=== PATIENT | male | born 1970 | race Caucasian/White ===

== ENCOUNTER 2023-01-04 05:47 | Observation (INO) ==
--- NOTE | 2022-12-07 11:02 | PAT Medication Instructions ---
Medication Instructions Date of Service December 07, 2022 Home Medications Medication Instructions Recorded metformin 500 mg tablet,extended 500 mg PO BID #180 tabs 06/15/22 release 24 hr cyclobenzaprine 10 mg tablet 10 mg PO HS PRN muscle spasm #90 09/16/22 tabs tadalafil 20 mg tablet 20 mg PO DAILY PRN sexual activity 09/16/22 #90 tabs pregabalin 75 mg capsule 75 mg PO TID #90 caps 11/04/22 amlodipine 5 mg tablet 5 mg PO QAM #90 tabs 12/06/22 olmesartan 40 1 tab PO QAM #90 tabs 12/06/22 mg-hydrochlorothiazide 25 mg tablet metformin 500 mg tablet,extended release 24 hr 500 mg PO BID cyclobenzaprine 10 mg tablet 10 mg PO HS PRN muscle spasm tadalafil 20 mg tablet 20 mg PO DAILY PRN sexual activity pregabalin 75 mg capsule 75 mg PO TID fluoxetine 20 mg capsule 20 mg PO QAM meloxicam 7.5 mg tablet 7.5 mg PO QAM naltrexone 50 mg tablet 50 mg PO QAM ropinirole 0.25 mg tablet 0.25 mg PO QPM rosuvastatin 5 mg tablet 5 mg PO QAM spironolactone 25 mg tablet 25 mg PO QAM amlodipine 5 mg tablet 5 mg PO QAM olmesartan 40 mg-hydrochlorothiazide 25 mg tablet 1 tab PO QAM ASK your surgeon for instructions meloxicam 7.5 mg tablet 7.5 mg PO QAM STOP taking 24 hours before surgery tadalafil 20 mg tablet 20 mg PO DAILY PRN sexual activity DO NOT take the morning of surgery metformin 500 mg tablet,extended release 24 hr 500 mg PO BID spironolactone 25 mg tablet 25 mg PO QAM olmesartan 40 mg-hydrochlorothiazide 25 mg tablet 1 tab PO QAM Take morning of surgery With a small sip of water, OTHERWISE NOTHING TO EAT OR DRINK AFTER MIDNIGHT: pregabalin 75 mg capsule 75 mg PO TID fluoxetine 20 mg capsule 20 mg PO QAM naltrexone 50 mg tablet 50 mg PO QAM rosuvastatin 5 mg tablet 5 mg PO QAM amlodipine 5 mg tablet 5 mg PO QAM Take evening before surgery metformin 500 mg tablet,extended release 24 hr 500 mg PO BID cyclobenzaprine 10 mg tablet 10 mg PO HS PRN muscle spasm (if needed) pregabalin 75 mg capsule 75 mg PO TID ropinirole 0.25 mg tablet 0.25 mg PO QPM Other Notes If you have any questions please call us at [phone] or [phone] or [phone] or [phone]
--- NOTE | 2022-12-12 09:49 | Anesthesiology Consultation ---
Date of Service December 12, 2022 Assessment & Plan (1) Encounter for pre-operative examination: - check BSG am DOS. Chart Review Chart Review: Acceptable Risk for Surgery and Patient seen in Pre Admission Testing Teaching & Discussion Pre-Anesthesia Teaching/Discussion Notes: Instructed NPO after midnight before surgery, except medications with 15 cc of water. Medication instructions provided according to the PAT guidelines. History Surgery Operation Date: 01/03/23 07:15 Proposed Procedures p L4-L5 Lumbar Decompression - Ben Cuadra MD Height/Weight Height: 6 ft 1 in Weight: 137.9 kg Allergies Allergy/AdvReac Type Severity Reaction Status Date / Time lisinopril AdvReac Mild cough Verified 12/12/22 08:09 Medications Home Medications Medication Instructions Recorded Confirmed Last Taken metformin 500 mg tablet,extended 500 mg PO BID #180 tabs 06/15/22 12/05/22 Unknown release 24 hr cyclobenzaprine 10 mg tablet 10 mg PO HS PRN muscle spasm #90 09/16/22 12/05/22 Unknown tabs tadalafil 20 mg tablet 20 mg PO DAILY PRN sexual activity 09/16/22 12/05/22 Unknown #90 tabs pregabalin 75 mg capsule 75 mg PO TID #90 caps 11/04/22 12/05/22 Unknown fluoxetine 20 mg capsule 20 mg PO QAM 12/05/22 12/05/22 Unknown meloxicam 7.5 mg tablet 7.5 mg PO QAM 12/05/22 12/05/22 Unknown ropinirole 0.25 mg tablet 0.25 mg PO QPM 12/05/22 12/05/22 Unknown rosuvastatin 5 mg tablet 5 mg PO QAM 12/05/22 12/05/22 Unknown spironolactone 25 mg tablet 25 mg PO QAM 12/05/22 12/05/22 Unknown amlodipine 5 mg tablet 5 mg PO QAM #90 tabs 12/06/22 Unknown olmesartan 40 1 tab PO QAM #90 tabs 12/06/22 Unknown mg-hydrochlorothiazide 25 mg tablet naltrexone 50 mg tablet 50 mg PO QAM #90 tabs 12/08/22 Unknown Past Medical History Medical History Depression Dyslipidemia GERD (gastroesophageal reflux disease) rare, stable per pt History of varicocele REPAIRED >20 YRS AGO HTN (hypertension) controlled, stable per pt Lumbar pain with radiation down both legs Lumbosacral facet joint syndrome Obstructive sleep apnea --NO DEVICE; USES WEDGE PILLOW Prediabetes on metformin Restless legs Severe obesity (BMI >= 40) Urinary urgency r/t back Patient denies h/o stroke, seizures, heart attack, heart failure, blood clots/DVTs or blood transfusions. Exercise / Class Metabolic Activity II 4-5 Yardwork/Stairs/Walk up hill (denies chest discomfort or shortness of breath with 1 FOS) Past Family History Family History Uncle Colorectal cancer Father Hypertension Grandfather (Paternal) Hypertension Denies family history of Ovarian cancer Prostate cancer Myocardial infarction Breast cancer Past Surgical History Surgical History H/O inguinal hernia repair H/O vasectomy History of colonoscopy Past Anesthesia History No Hx of Anesthesia Complications and No Family Hx of Anesthesia Complications History of PONV No Hx of PONV and No Hx of Motion Sickness Social History Smoking Status: Never smoker Do You Dip or Chew Tobacco: No Hx Alcohol Use: Yes alcohol intake frequency: holidays/special occasions only Hx Substance Use: No substance use type: does not use Review of Systems Patient denies chest pain, shortness of breath, dyspnea on exertion, fever, chills, cough, wheezing, or palpitations. Physical Exam Vital Signs Vitals BP 117/83 P 78 TEMP 98.3 SP02 95% on RA RESP 17 Physical Patient resting comfortably in chair in no acute distress, alert and oriented, responding appropriately throughout visit Full cervical extension range of motion without pain TMD < 3 finger breadths Mallampati Score 3 Dentition: several crowns, denies chipped or loose teeth implants or bridges Lungs: normal respiratory effort. Good air movement, clear throughout to auscultation, no adventitious breath sounds Cardiac: regular rate and rhythm, no murmurs noted Carotid arteries: negative bruit bilat Lab Results Anesthesia Preop Results Results Anesthesia Widget: WBC 6.73 K/ul (4.8-10.8) 12/12/22 Hgb 14.9 g/dl (14.0-18.0) 12/12/22 Hct 41.1 % (42.0-52.0) L 12/12/22 Plt 237 K/uL (130-400) 12/12/22 Na 138 mmol/L (136-145) 12/12/22 K 4.0 mmol/L (3.5-5.1) 12/12/22 Cl 103 mmol/L (98-107) 12/12/22 CO2 28 mmol/L (21-32) 12/12/22 BUN 15 mg/dl (6-23) 12/12/22 Creat 1.03 mg/dl (0.6-1.4) 12/12/22 Glucose Level 125 mg/dl (70-99(Fasting)) H 12/12/22 HA1c 6.3 % (4.5-5.6) H 12/12/22 Blood Type A Negative 12/12/22 Antibody Screen NEGATIVE 12/12/22 Testing Electrocardiogram Date: 12/12/22 NSR, rate 75 bpm Stress Test Date: 06/28/21 Negative stress echo and EKG for ischemia at MPHR 88% METS 9.2 EF 60-65% No regional wall motion abnormalities Mild cLVH No significant valvular abnormalities Other Testing Head CT 01/17/22 No acute intracranial abnormality.
[2023-01-04] MEDS ORDERED: LR 15ML/HR IV SCH (06:00)
[2023-01-04] MEDS ORDERED: LR 60ML/HR IV SCH (06:00)
[2023-01-04] MEDS ORDERED: DexMEDEtomidine HCL IV 100 MCG/ML VIAL IV ONE (06:40)
[2023-01-04] MEDS ORDERED: REMIFENTANIL HCL 1 MG VIAL IV ONE ×2 (06:40→06:41)
[2023-01-04] MEDS ORDERED: MIDAZOLAM HCL 1 MG/ML 2ML VIAL ONE (07:00)
[2023-01-04] MEDS ORDERED: fentaNYL citrate PF 100 MCG/2 ML VIAL ONE ×2 (07:01→08:13)
--- NOTE | 2023-01-04 07:02 | History & Physical Bridge Note ---
Date of Service January 04, 2023 History & Physical Bridge Note I have examined the patient, reviewed the History & Physical and in the interval since the performance of the History & Physical I have noted the following changes of clinical significance: no changes noted
[2023-01-04] MEDS ORDERED: LABETALOL HCL IV 5 MG/ML 20ML IV PRN (07:09)
[2023-01-04] MEDS ORDERED: ONDANSETRON INJ 2 MG/ML 2 ML VIAL IV PRN ×2 (07:09→09:58)
[2023-01-04] MEDS ORDERED: HYDROmorphone INJ 1 MG/ML SYRINGE IV PRN (07:09)
[2023-01-04] MEDS ORDERED: PROMETHAZINE HCL 12.5 MG in SODIUM CHLORIDE 0.9% 50 ML IV PRN ×2 (07:09→09:58)
[2023-01-04] MEDS ORDERED: FLUMAZENIL 0.1 MG/1 ML 10 ML VIAL IV PRN (07:09)
[2023-01-04] MEDS ORDERED: NALOXONE HCL 0.4 MG/1 ML VIAL/CARP IV PRN ×2 (07:09→09:58)
[2023-01-04] MEDS ORDERED: ATROPINE SULFATE 0.1 MG/ML 10ML SYR IV PRN (07:09)
[2023-01-04] MEDS ORDERED: ePHEDrine sulfate 50 MG/ML AMP IV PRN (07:09)
[2023-01-04] MEDS ORDERED: LIDOCAINE 2% 2 ML VIAL/AMP(20MG/ML) INFIL ONE (07:12)
[2023-01-04] MEDS ORDERED: ROCURONIUM BROMIDE 10 MG/ML 5 ML VIAL IV ONE ×2 (07:12→08:09)
[2023-01-04] MEDS ORDERED: ONDANSETRON INJ 2 MG/ML 2 ML VIAL ONE (07:12)
[2023-01-04] MEDS ORDERED: DEXAMETHASONE SOD INJ 4 MG/ML VIAL ONE (07:12)
[2023-01-04] MEDS ORDERED: PROPOFOL IV EMULSION 10 MG/ML 20 ML VIAL IV ONE ×2 (07:12→08:57)
[2023-01-04] MEDS ORDERED: BUPIVACAINE/EPINEPHRINE 0.5% MPF 1:200,000 30 ML VIAL ONE (07:14)
[2023-01-04] MEDS ORDERED: VANCOMYCIN HCL 1000MG/20ML VIAL ONE (07:14)
[2023-01-04] MEDS ORDERED: GLYCOPYRROLATE 0.2 MG/ML VIAL ONE (07:50)
[2023-01-04] MEDS ORDERED: diphenhydrAMINE 50 MG/ML VIAL ONE (07:50)
[2023-01-04] MEDS ORDERED: PHENYLEPHRINE HCL 10 MG/ML VIAL ONE (08:57)
[2023-01-04] MEDS ORDERED: SUGAMMADEX SODIUM 200 MG/2 ML VIAL IV ONE (09:32)
--- NOTE | 2023-01-04 09:54 | Post Operative Brief Note ---
PG Immediate Post Op with CF Date of Surgery January 04, 2023 Pre & Post Diagnosis Operation Date: 01/04/23 07:15 Pre-Op Diagnosis: Lumbar Back Pain with radiculopathy affecting lower extremities Lumbar Stenosis with Neurogenic Claudication, Degenerative Spondylolithesis, Post-Op Diagnosis: Lumbar Back Pain with radiculopathy affecting lower extremities Lumbar Stenosis with Neurogenic Claudication, Degenerative Spondylolithesis, I identified the patient and participated in the time-out.: Yes Procedure Operation Date: 01/04/23 07:15 Actual Procedures p L4-L5 Lumbar Decompression(Not Applicable) - Ben Cuadra MD Surgeon Ben Cuadra MD Wound Care Technician Tigist bolivar Estimated Blood Loss 50 Findings Consistent with Post-Op Diagnosis Specimens Specimen Description: No specimen per surgeon Drains Jones Catheter (jones inserted prior to beginning of procedure by Maddison Salmeron one attempt no difficulties.)
[2023-01-04] MEDS ORDERED: oxyCODONE/ACETAMINOPHEN 5mg/325mg TAB PO PRN (09:58)
[2023-01-04] MEDS ORDERED: METOCLOPRAMIDE HCL INJ 5 MG/ML 2 ML VIAL IV PRN (09:58)
[2023-01-04] MEDS ORDERED: bisacodyL 10 MG SUPP PR PRN (09:58)
[2023-01-04] MEDS ORDERED: ACETAMINOPHEN 1,000 MG/100 ML VIAL IV PRN (09:58)
[2023-01-04] MEDS ORDERED: ALUMINUM/MAGNESIUM SUSP 30 ML UDC PO PRN (09:58)
[2023-01-04] MEDS ORDERED: LORazepam 0.5 MG TAB PO PRN (09:58)
[2023-01-04] MEDS ORDERED: hydrOXYzine HCl 25 MG TAB PO PRN (09:58)
[2023-01-04] MEDS ORDERED: SOD PHOSPHATE/SOD BIPHOSPHATE ENEMA 132 ML BTL PR PRN (09:58)
[2023-01-04] MEDS ORDERED: MAGNESIUM HYDROXIDE SUSP 30 ML UDC PO PRN (09:58)
[2023-01-04] MEDS ORDERED: HYDROmorphone INJ 0.5 MG/0.5 ML SYR IV PRN (09:58)
[2023-01-04] MEDS ORDERED: DO NOT ADMINISTER FLU VACCINE PRN (09:58)
[2023-01-04] MEDS ORDERED: FAMOTIDINE 20 MG TAB PO PRN (09:58)
[2023-01-04] MEDS ORDERED: DO NOT ADMINISTER PNEUMOCOCCAL VACCINE PRN (09:58)
[2023-01-04] MEDS ORDERED: ONDANSETRON 4 MG OD TAB PO PRN (09:58)
[2023-01-04] MEDS ORDERED: LORazepam 2 MG/1 ML VIAL IV PRN (09:58)
[2023-01-04] MEDS ORDERED: diphenhydrAMINE Capsule 25 MG CAP PO PRN (09:58)
[2023-01-04] MEDS ORDERED: ACETAMINOPHEN 500 MG TAB PO PRN (09:58)
[2023-01-04] MEDS: fentaNYL citrate PF 100 MCG/2 ML VIAL IV PRN ×4 (10:13→10:30)
--- NOTE | 2023-01-04 10:27 | Fluoroscopy Report ---
FL lumbar spine 2-3V CLINICAL HISTORY: L4-L5 LUMBAR DECOMPRESSION COMPARISON STUDY: None. FLUOROSCOPY TIME: 23 seconds. FLUOROSCOPY IMAGES: 1 Ka,r: 20.2 mGy FINDINGS: There are surgical instruments posterior to the L4 and L5 vertebral bodies. IMPRESSION: Fluoroscopic assistance for L4-5 decompression. ACT 112: Negative or not required by law. Electronically signed by: Ge Bender M.D. 01/04/2023 10:26 AM
--- NOTE | 2023-01-04 10:41 | Anesthesiology Progress Note ---
Date of Service January 04, 2023 Anesthesia Post Procedure Vital Signs Vital Signs: Temp Pulse Resp BP Pulse Ox O2 Del Method O2 Flow Rate 01/04/23 09:59 36.0 C L 96 H 18 154/96 H 99 Oxymask 5 01/04/23 06:18 36.7 C 81 20 151/109 H 96 Room Air Pain Intensity Lower Back: Pain Intensity: 6 Transfer of Care Handoff Completed per policy Notes Mental Status: alert / awake / arousable Patient Amnestic to Procedure: Yes Nausea / Vomiting: adequately controlled Pain: adequately controlled Airway Patency, RR, SpO2: stable & adequate BP & HR: stable & adequate Hydration State: stable & adequate Anesthetic Complications: no major complications apparent
[2023-01-04] MEDS ORDERED: CYCLOBENZAPRINE HCL 10 MG TAB PO PRN (11:17)
[2023-01-04] MEDS: LACTATED RINGER'S 1,000 ML IV SCH (13:04)
[2023-01-04] MEDS: KETOROLAC 30 MG/ML VIAL IV SCH ×2 (13:05→17:59)
[2023-01-04] MEDS: PREGABALIN 75 MG CAP PO SCH ×2 (13:47→20:19)
[2023-01-04] MEDS ORDERED: LORazepam 0.5 MG in SYRINGE 0.25 ML IV PRN (14:19)
[2023-01-04] MEDS: ceFAZolin 1000MG 1,000 MG/7.5 ML SYR IV SCH (16:20)
[2023-01-04] MEDS: metFORMIN HCL ER 500 MG TABCR PO SCH (16:20)
[2023-01-04] MEDS ORDERED: DOCUSATE SODIUM/SENNA 50/8.6MG TAB PO SCH (21:00)
[2023-01-04] MEDS ORDERED: rOPINIRole HCL 0.25 MG TABLET PO SCH (21:00)
[2023-01-05] MEDS: ceFAZolin 1000MG 1,000 MG/7.5 ML SYR IV SCH (00:42)
[2023-01-05] MEDS: KETOROLAC 30 MG/ML VIAL IV SCH ×2 (00:43→04:46)
[2023-01-05] MEDS: LACTATED RINGER'S 1,000 ML IV SCH (05:00)
[2023-01-05] MEDS ORDERED: POLYETHYLENE (MIRALAX) 17 GM PACK PO SCH (06:00)
[2023-01-05] MEDS: metFORMIN HCL ER 500 MG TABCR PO SCH (07:43)
--- NOTE | 2023-01-05 07:58 | Orthopedic Progress Note ---
Date of Service January 05, 2023 Subjective . Patient notes that he has some incisional pain, but overall he is now able to stand up without his feet going numb, is pleased with his postoperative presentation of symptoms. Motor intact in lower extremities. Impression/plan: Patient doing well status post decompression at L4-5 postop day 1, ready for discharge later today once clears physical therapy. Review of Systems All systems reviewed & are unremarkable except as noted in HPI & below. Physical Exam . Results & Data Results & Data Laboratory Results . Diagnostic Findings . PG Care Time/CCT Total # of Minutes Spent Total Time Spent with Patient: Total time spent is greater than 50% in coordination of care (as documented) at patient's floor/unit and/or counseling patient: Coding Level of Care Code 44118 Post Operative Follow-Up
--- NOTE | 2023-01-05 08:08 | Discharge Summary ---
Date of Service January 05, 2023 Admission HPI (Per Admitting) Lumbar decompression for stenosis January 04, 2023 Principal Diagnosis Same as "Discharge Diagnosis" noted below under Discharge Instructions. Discharge Exam . Discharge Data Procedures Performed Operation Date: 01/04/23 07:15 Actual Procedures p L4-L5 Lumbar Decompression(Not Applicable) - Ben Cuadra MD Ordered Studies 01/04/23 07:15 [place] lumbar spine 2-3V Routine PG Care Time/CCT Total # of Minutes Spent Total Time Spent with Patient: Total time spent is greater than 50% in coordination of care (as documented) at patient's floor/unit and/or counseling patient: Discharge Plan Discharge Items Patient Disposition: Home - Self-Care Reason For Visit: Lumbar Stenosis with Neurogenic Claudication, Dege Discharge Diagnosis: Lumbar stenosis Activity: As commented below Lifting: No more than 10 pounds Lifting Comment: No heavy bending lifting twisting until follow-up Bathing: May shower/bathe in 3 days Exercise/Sports: Wait until after follow-up appointment Driving/Machine Use: Resume 3 days after discharge Non-emergency contact: Surgeon Call non-emergency contact if: your pain is worsening Follow-up/Referrals: Adri Marrero MD [Primary Care Provider] - Diet: Regular Addtl Attending Provider Instructions: Follow-up in 2 weeks, may wash incision after 3 days Pending Studies at Discharge: No Stand-Alone Forms: My [employer], Smoking Cessation Medications and DC Order Prescriptions: Continued pregabalin 75 mg capsule 75 mg PO TID Qty: 90 3RF amlodipine 5 mg tablet 5 mg PO QAM Qty: 90 3RF olmesartan-hydrochlorothiazide 40-25 mg tablet 1 tab PO QAM Qty: 90 3RF naltrexone 50 mg tablet 50 mg PO QAM Qty: 90 1RF meloxicam 7.5 mg tablet 7.5 mg PO QAM Qty: 90 1RF metformin 500 mg tablet extended release 24 hr 500 mg PO BID Qty: 180 3RF cyclobenzaprine 10 mg tablet 10 mg PO HS PRN (Reason: muscle spasm) Qty: 90 1RF spironolactone [Aldactone] 25 mg tablet 25 mg PO QAM ropinirole 0.25 mg tablet 0.25 mg PO QPM Rx Instructions: Take 0.25mg daily 2 hours before symptom onset. Increase to 0.5mg daily 2 hours before symptom onset if no improvement after 1 week of 0.25mg daily. fluoxetine 20 mg capsule 20 mg PO QAM rosuvastatin 5 mg tablet 5 mg PO QAM tadalafil [Cialis] 20 mg tablet 20 mg PO DAILY PRN (Reason: sexual activity) Rx Instructions: administer approximately 30min before sexual activity; do not use more than 1 dose per 24hrs Discharge Orders: Discharge Order (Routine); Ordered 01/05/23 Ordered By: Ben Cuadra Admission Data Admit Date/Time: 01/04/23 09:58 Attending Provider: Ben Cuadra Admit Provider: Ben Cuadra Primary Care Provider: Adri Marrero Other Interventions: Discharge Summary Assessment (RN) Last Done: 01/05/23 10:58
[2023-01-05] MEDS: PREGABALIN 75 MG CAP PO SCH (08:18)
[2023-01-05] MEDS ORDERED: MELOXICAM 7.5 MG TAB PO SCH (09:00)
[2023-01-05] MEDS ORDERED: hydroCHLOROthiazide 25 MG TAB PO SCH (09:00)
[2023-01-05] MEDS ORDERED: LOSARTAN POTASSIUM 50 MG TAB PO SCH (09:00)
[2023-01-05] MEDS ORDERED: NALTREXONE HCL 50 MG TAB PO SCH (09:00)
[2023-01-05] MEDS ORDERED: SPIRONOLACTONE 25 MG TAB PO SCH (09:00)
[2023-01-05] MEDS ORDERED: amLODIPine BESYLATE 5 MG TAB PO SCH (09:00)
[2023-01-05] MEDS ORDERED: FLUoxetine HCL 20 MG CAP PO SCH (09:00)
--- NOTE | 2023-01-05 10:00 | Operative Report ---
PG Post Operative Report Pre & Post Diagnosis Operation Date: 01/04/23 07:15 Pre-Op Diagnosis: Lumbar Back Pain with radiculopathy affecting lower extremities Lumbar Stenosis with Neurogenic Claudication, Degenerative Spondylolithesis, Post-Op Diagnosis: Lumbar Back Pain with radiculopathy affecting lower extremities Lumbar Stenosis with Neurogenic Claudication, Degenerative Spondylolithesis, I identified the patient and participated in the time-out.: Yes Procedure Operation Date: 01/04/23 07:15 Actual Procedures p L4-L5 Lumbar Decompression(Not Applicable) - Ben Cuadra MD Surgeon Ben Cuadra MD [employer] Reclaim Processor [employer] bolivar Estimated Blood Loss 50 Findings Consistent with Post-Op Diagnosis Specimens none Description of Procedure 1. L4-5 posterior lumbar decompression with bilateral hemilaminotomies partial medial facetectomies and foraminotomies (93742) Patient was taken the operating room and after adequate anesthesia was carefully positioned prone on the Carlton frame, the lumbar area was preprepped followed by then bringing in fluoroscopy where I marked for the location for the incision for the L4-5 level. After doing so prep and drape was performed followed by making a midline incision over the L4-5 level, I carried this down through the subcutaneous tissues to the interlaminar region at L4-5. The appropriate bony surfaces were exposed on both sides, and retractors were set. I brought in the operative microscope, began the procedure with removing the interspinous ligament between L4 and L5, carried this down and thinned the ligamentum flavum, I also used a high-speed bur to move along the inferior laminar edge of L4 and along the medial facet region and also across the superior laminar edge of L5. I continued to thin the ligamentum flavum and then entered midline at this level. Combination of curettes and Kerrison punches were then utilized to rem ove the remaining ligamentum flavum and undercut the facets on both sides clearing out the lateral recess regions on both sides and decompressing the exiting nerve roots at L4 and L5. When this was completed the area was inspected no evidence of issue was noted in terms of dural leakage or bleeding. The area was injected with some local, also placed a small piece of Gelfoam and vancomycin powder in this region followed by then closure with interrupted layers of 0 Vicryl suture followed by 2-0 Vicryl sutures and cathie for the skin. Sterile dressing was applied, the patient was taken recovery room septic condition. I attest to the content of the Intraoperative Record and any orders documented therein. Any exceptions are noted below.
== END 2023-01-05 11:53 | disposition home or self-care (01) ==
LOC: 3W 05:47 → ASU 05:47